=== PATIENT | female | born 1955 | race Two or more races ===

== ENCOUNTER 2025-07-03 11:40 | Outpatient (CLI) | payer MEDICAID ==
[2025-07-03 12:07] LABS: Hematocrit 44.6 % (36.0-46.0); Hemoglobin 15.2 g/dL (12.2-16.2); Mean Corpuscular Hemoglobin 30.9 pg (28.0-32.0); Mean Corpuscular Volume 90.8 fL (80.0-100.0); Nucleated Red Blood Cells % 0.2 %
[2025-07-03 12:27] LABS: Albumin 4.5 g/dL (3.2-4.8); Alkaline Phosphatase 81 U/L (46-116); Anion Gap 9 (5-15); BUN/Creatinine Ratio 18.4 (10.0-20.0); Bilirubin, Total 0.7 mg/dL (0.2-1.0); Blood Urea Nitrogen 16 mg/dL (9-23); Calcium 9.5 mg/dL (8.7-10.4); Chloride 102 mmol/L (98-107); Cholesterol 177 mg/dL (< 200); HDL Cholesterol 47 mg/dL (40-59); Sodium 142 mmol/L (136-145); Total Protein 7.3 g/dL (5.7-8.2); Triglycerides 149 mg/dL (< 150)
[2025-07-03 12:29] LABS: Alanine Aminotransferase 44 U/L (7-40); Carbon Dioxide 31 mmol/L (20-31); Glucose 147 mg/dL (74-106); Potassium 3.2 mmol/L (3.5-5.1)
[2025-07-03 13:48] LABS: Urine Protein, UAD Negative (Negative)
== END 2025-07-03 17:00 | disposition home or self-care (01) ==
LOC: LAB 11:40
PROVIDERS: ATTEND Nurse Practitioner Family
DX: I10 Essential (primary) hypertension (principal); E66.9 Obesity, unspecified; Z00.01 Encounter for general adult medical examination with abnormal findings
CPT/HCPCS: 36415; 80053; 80061; 81001; 82306; 84443; 85025